=== PATIENT | male | born 1945 | race Caucasian/White ===

== ENCOUNTER → 2016-11-21 | Outpatient (REF) | payer MEDICAID, MEDICARE | LOC: M LAB REF 14:45 | PROVIDERS: ATTEND Otolaryngology | DX: C02.1 Malignant neoplasm of border of tongue (principal) ==

== ENCOUNTER → 2016-11-27 | Outpatient (CLI) | payer MEDICAID, MEDICARE, OTHER ==
--- NOTE | 2016-11-28 09:14 | REP ---
Whole body PET CT scan: Scanning is performed from skull base to the upper thighs. Studies performed for squamous cell carcinoma of the tongue. Neck and supraclavicular areas: There is a hyper metabolic focus in the oropharynx on the left with a standard uptake value of 15.7 compatible with neoplasm. This measures 3.8 cm AP by 2.5 cm transversely by 2.0 cm craniocaudad and appears to be in the left lateral portion of the tongue. There are no other hypermetabolic foci in the neck or supraclavicular areas. Chest: There is a 0.8 focus of hypermetabolic up take near the pleura posteriorly in the superior segment right lower lobe within a zone of dependent atelectasis. There are no other hypermetabolic foci in the chest. Abdomen, pelvis and upper thighs: There is nonspecific bowel uptake. No hypermetabolic foci are identified. Impression: There is a hypermetabolic focus in the tongue on the left. No other hypermetabolic foci in the neck or supraclavicular areas. There is a is 0.8 cm hypermetabolic focus in the superior segment of the right lung lower lobe , within a zone of dependent atelectasis. There are no other hypermetabolic foci. The study is performed with 10 mCi of F 18 FDG. Signed by Canelo Coello MD 11/28/2016 09:06 A
== END ==
LOC: M PLARAD 14:06
PROVIDERS: ATTEND Otolaryngology
DX: C02.1 Malignant neoplasm of border of tongue (principal)
CPT/HCPCS: 78815; A9552

== ENCOUNTER → 2016-12-05 | Outpatient (CLI) | payer MEDICARE ==
--- NOTE | 2016-12-06 08:12 | RADONC ---
RADIATION ONCOLOGY BRIEF CONSULTATION NOTE: DATE: 12/05/2016 CHART NUMBER: [id number]. DIAGNOSIS: Lateral tongue cancer. BRIEF CONSULTATION NOTE: Mr. 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 Pyle for consultation and possible radiation. 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 At that time, he had been scheduled for consultation with [facility] for definitive radiation therapy. The patient failed to show up for his visit and further investigation revealed that he had gone to [place] for treatment there. It is clear that he received curative chemotherapy and radiation therapy in [place] for what was then staged as a stage MOHSEN, [id number] right tonsillar carcinoma. Apparently, the patient underwent a full course of concurrent chemoradiation with cisplatin and high-dose radiation to his oral cavity and oropharynx region. The patient recently had some issues with his tongue and a biopsy done on 11/21/2016 showed a well to moderately differentiated squamous cell carcinoma involving his left lateral tongue. PET scan was done on 11/27/2016 and showed marked hypermetabolic focus with an SUV value of 15.7, measuring 3.8 cm x 2.5 cm x 2 cm in the left lateral tongue region. Dr. Pyle was unaware that we were not the treating center and therefore, referred him to us for discussion of his therapeutic options. The patient and his family came in today and made clear that if any treatment was to be given he will be treated in [place] and not here. PAST MEDICAL HISTORY: The patient's past medical history is positive for hypertension, urinary tract infections, bilateral hernia surgeries. He was gored by a bull at the age of 17. ALLERGIES: The patient reports being allergic to BENADRYL. SOCIAL HISTORY: The patient has smoked two packs of cigarettes per day for 7 years. He quit in 2004. He does not abuse alcohol. FAMILY HISTORY: The patient's family history is positive for a brother with stomach and lung cancer and a mother with some type of spinal cord cancer. REVIEW OF SYSTEMS: The patient's review of systems is positive for some discomfort of the tongue and difficulty swallowing. It is otherwise generally noncontributory. He denies standard review of systems. PHYSICAL EXAMINATION: Deferred. ASSESSMENT: I have spoken with Dr. Pyle to clarify why he was being referred to me. Dr. Pyle he thought he was initially treated by us and that is why he insisted that the patient come here. We had tried to cancel this consultation and have set up an appointment in [place] for him to be seen there. As I entered the room, the patient's family reported that if any treatments were be delivered they will be done in [place]. Therefore, I have recommended that they go and see the radiation oncologist in [place] for further consultation. I did reassure them that I have known Dr. Hernandez for 20 years and he is an excellent physician. I have great confidence in him. In light of the fact that the patient's treatments have all been in [place] and that he is going to continue with their management and follow their recommendations I have discharged him from any further followup in our office. cc: MD Holden Green MD MTDD
== END ==
LOC: M ONCR 14:02
PROVIDERS: ATTEND Radiology Radiation Oncology
DX: C02.9 Malignant neoplasm of tongue, unspecified (principal)

== ENCOUNTER → 2017-06-17 | Outpatient (CLI) | payer MEDICARE | LOC: M PLARAD 08:12 | DX: C02.8 Malignant neoplasm of overlapping sites of tongue (principal) | CPT/HCPCS: 78815 ==

== ENCOUNTER → 2017-10-07 | Outpatient (CLI) | payer MEDICARE | LOC: M PLARAD 09:38 | DX: C02.8 Malignant neoplasm of overlapping sites of tongue (principal) | CPT/HCPCS: 78815 ==

== ENCOUNTER 2017-10-27 12:30 | Outpatient (REF) | payer MEDICARE | END 2017-10-29 | LOC: M LAB REF 12:30 | DX: C02.1 Malignant neoplasm of border of tongue (principal) | CPT/HCPCS: 88305 ==